=== PATIENT | female | born 1955 | race Caucasian/White ===

== ENCOUNTER → 2017-10-21 | Outpatient (CLI) | payer OTHER, BC | LOC: HYPER 06:43 | DX: L97.811 Non-pressure chronic ulcer of other part of right lower leg limited to breakdown of skin (principal); L97.821 Non-pressure chronic ulcer of other part of left lower leg limited to breakdown of skin; I10 Essential (primary) hypertension; G60.9 Hereditary and idiopathic neuropathy, unspecified; R21 Rash and other nonspecific skin eruption; M19.90 Unspecified osteoarthritis, unspecified site; F41.9 Anxiety disorder, unspecified; I89.0 Lymphedema, not elsewhere classified; E78.5 Hyperlipidemia, unspecified; F32.9 Major depressive disorder, single episode, unspecified; F17.210 Nicotine dependence, cigarettes, uncomplicated ==

== ENCOUNTER → 2017-11-11 | Outpatient (CLI) | payer OTHER, BC | LOC: HYPER 06:44 | DX: L97.821 Non-pressure chronic ulcer of other part of left lower leg limited to breakdown of skin (principal); L97.811 Non-pressure chronic ulcer of other part of right lower leg limited to breakdown of skin; I10 Essential (primary) hypertension; I89.0 Lymphedema, not elsewhere classified; E78.5 Hyperlipidemia, unspecified; G60.9 Hereditary and idiopathic neuropathy, unspecified; G62.9 Polyneuropathy, unspecified; F32.9 Major depressive disorder, single episode, unspecified; F41.9 Anxiety disorder, unspecified; F17.210 Nicotine dependence, cigarettes, uncomplicated ==

== ENCOUNTER → 2017-11-25 | Outpatient (CLI) | payer OTHER, BC | LOC: HYPER 07:01 | DX: L97.811 Non-pressure chronic ulcer of other part of right lower leg limited to breakdown of skin (principal); L97.821 Non-pressure chronic ulcer of other part of left lower leg limited to breakdown of skin; I10 Essential (primary) hypertension; I89.0 Lymphedema, not elsewhere classified; E78.5 Hyperlipidemia, unspecified; M19.90 Unspecified osteoarthritis, unspecified site; G60.9 Hereditary and idiopathic neuropathy, unspecified; F41.9 Anxiety disorder, unspecified; F32.9 Major depressive disorder, single episode, unspecified; F17.210 Nicotine dependence, cigarettes, uncomplicated; Z86.711 Personal history of pulmonary embolism ==

== ENCOUNTER → 2021-01-15 | Outpatient (CLI) | payer OTHER, BC | LOC: HYPER 08:56 | PROVIDERS: ATTEND Emergency Medicine | DX: L97.822 Non-pressure chronic ulcer of other part of left lower leg with fat layer exposed (principal); L97.812 Non-pressure chronic ulcer of other part of right lower leg with fat layer exposed; I87.2 Venous insufficiency (chronic) (peripheral); R21 Rash and other nonspecific skin eruption; L29.8 Other pruritus; R60.0 Localized edema; I89.0 Lymphedema, not elsewhere classified; I10 Essential (primary) hypertension; K31.84 Gastroparesis; M19.90 Unspecified osteoarthritis, unspecified site; G62.9 Polyneuropathy, unspecified; E78.5 Hyperlipidemia, unspecified; G90.9 Disorder of the autonomic nervous system, unspecified; F41.9 Anxiety disorder, unspecified; F32.9 Major depressive disorder, single episode, unspecified; F17.200 Nicotine dependence, unspecified, uncomplicated; Z86.711 Personal history of pulmonary embolism; Z98.890 Other specified postprocedural states; Z79.899 Other long term (current) drug therapy; Z90.49 Acquired absence of other specified parts of digestive tract ==

== ENCOUNTER → 2021-01-30 | Outpatient (CLI) | payer OTHER, BC | LOC: HYPER 08:34 | PROVIDERS: ATTEND Emergency Medicine | DX: L97.822 Non-pressure chronic ulcer of other part of left lower leg with fat layer exposed (principal); L97.812 Non-pressure chronic ulcer of other part of right lower leg with fat layer exposed; L84 Corns and callosities; L29.8 Other pruritus; I87.2 Venous insufficiency (chronic) (peripheral); R21 Rash and other nonspecific skin eruption; R60.0 Localized edema; I89.0 Lymphedema, not elsewhere classified; I10 Essential (primary) hypertension; G62.9 Polyneuropathy, unspecified; G90.9 Disorder of the autonomic nervous system, unspecified; E78.5 Hyperlipidemia, unspecified; K31.84 Gastroparesis; K70.30 Alcoholic cirrhosis of liver without ascites; M19.90 Unspecified osteoarthritis, unspecified site; F41.9 Anxiety disorder, unspecified; F32.9 Major depressive disorder, single episode, unspecified; F17.200 Nicotine dependence, unspecified, uncomplicated; Z86.711 Personal history of pulmonary embolism; Z90.49 Acquired absence of other specified parts of digestive tract ==

== ENCOUNTER → 2021-02-08 | Outpatient (CLI) | payer OTHER, BC ==
[~2021-02-08] MED LIST: ELIQUIS5 MG PO; FUROSEMIDE 20 M20 MG PO; GABAPENTIN600 M1 PO; HYDROXYZINE HCL50 MG PO; LEVETIRACETAM500 M1 PO; MIDODRINE HCL10 MG PO; REGLAN 10 MG TA10 MG PO; SUPER THERAVIT1 EACH PO; TRAMADOL 50 MG50 MG PO; ZOFRAN4 MG PO
== END ==
LOC: SJCVCIMAG 08:12 → SJCVC 11:06 → SJCVCIMAG 11:06
PROVIDERS: ATTEND Emergency Medicine
DX: I70.202 Unspecified atherosclerosis of native arteries of extremities, left leg (principal); L97.909 Non-pressure chronic ulcer of unspecified part of unspecified lower leg with unspecified severity; K70.30 Alcoholic cirrhosis of liver without ascites; I82.5Z9 Chronic embolism and thrombosis of unspecified deep veins of unspecified distal lower extremity; G90.9 Disorder of the autonomic nervous system, unspecified; Z88.8 Allergy status to other drugs, medicaments and biological substances; Z79.899 Other long term (current) drug therapy

== ENCOUNTER → 2021-02-12 | Outpatient (CLI) | payer OTHER, BC ==
[~2021-02-12] VITALS: Ht 157.5 cm; Wt 59.0 kg
[2021-02-12 07:13] VITALS: BP 126/80
== END | disposition home or self-care (01) ==
LOC: CATH 06:40
PROVIDERS: ATTEND Nuclear Medicine Nuclear Cardiology
DX: I70.248 Atherosclerosis of native arteries of left leg with ulceration of other part of lower leg (principal); L97.929 Non-pressure chronic ulcer of unspecified part of left lower leg with unspecified severity; I70.1 Atherosclerosis of renal artery; I10 Essential (primary) hypertension; I25.10 Atherosclerotic heart disease of native coronary artery without angina pectoris; E78.5 Hyperlipidemia, unspecified; M19.90 Unspecified osteoarthritis, unspecified site; F17.210 Nicotine dependence, cigarettes, uncomplicated; Z98.890 Other specified postprocedural states; Z79.899 Other long term (current) drug therapy; Z86.718 Personal history of other venous thrombosis and embolism; Z79.01 Long term (current) use of anticoagulants

== ENCOUNTER → 2021-02-20 | Outpatient (CLI) | payer OTHER, BC | LOC: HYPER 08:12 | PROVIDERS: ATTEND Emergency Medicine | DX: L97.822 Non-pressure chronic ulcer of other part of left lower leg with fat layer exposed (principal); L97.812 Non-pressure chronic ulcer of other part of right lower leg with fat layer exposed; I87.2 Venous insufficiency (chronic) (peripheral); R60.0 Localized edema; R21 Rash and other nonspecific skin eruption; L29.8 Other pruritus; I10 Essential (primary) hypertension; K31.84 Gastroparesis; M19.90 Unspecified osteoarthritis, unspecified site; G62.9 Polyneuropathy, unspecified; E78.5 Hyperlipidemia, unspecified; D89.89 Other specified disorders involving the immune mechanism, not elsewhere classified; F41.9 Anxiety disorder, unspecified; F32.9 Major depressive disorder, single episode, unspecified; F17.290 Nicotine dependence, other tobacco product, uncomplicated; Z86.711 Personal history of pulmonary embolism; Z79.899 Other long term (current) drug therapy ==

== ENCOUNTER → 2021-03-06 | Outpatient (CLI) | payer OTHER, BC | LOC: SJCVCIMAG 07:09 | PROVIDERS: ATTEND Internal Medicine Cardiovascular Disease | DX: R00.0 Tachycardia, unspecified (principal); I49.3 Ventricular premature depolarization; R06.00 Dyspnea, unspecified; R11.0 Nausea; R07.89 Other chest pain; I07.1 Rheumatic tricuspid insufficiency; I77.89 Other specified disorders of arteries and arterioles; E78.00 Pure hypercholesterolemia, unspecified; I82.409 Acute embolism and thrombosis of unspecified deep veins of unspecified lower extremity; I73.9 Peripheral vascular disease, unspecified; E78.5 Hyperlipidemia, unspecified; F17.200 Nicotine dependence, unspecified, uncomplicated; Z88.8 Allergy status to other drugs, medicaments and biological substances; Z79.899 Other long term (current) drug therapy; Z86.73 Personal history of transient ischemic attack (TIA), and cerebral infarction without residual deficits ==

== ENCOUNTER → 2021-03-13 | Outpatient (CLI) | payer OTHER, BC | LOC: HYPER 08:19 | PROVIDERS: ATTEND Emergency Medicine | DX: L97.822 Non-pressure chronic ulcer of other part of left lower leg with fat layer exposed (principal); L97.812 Non-pressure chronic ulcer of other part of right lower leg with fat layer exposed; L84 Corns and callosities; L29.8 Other pruritus; I87.2 Venous insufficiency (chronic) (peripheral); R60.0 Localized edema; R21 Rash and other nonspecific skin eruption; I10 Essential (primary) hypertension; G62.9 Polyneuropathy, unspecified; E78.5 Hyperlipidemia, unspecified; D89.89 Other specified disorders involving the immune mechanism, not elsewhere classified; I89.0 Lymphedema, not elsewhere classified; M19.90 Unspecified osteoarthritis, unspecified site; K31.84 Gastroparesis; F41.9 Anxiety disorder, unspecified; F32.9 Major depressive disorder, single episode, unspecified; Z86.711 Personal history of pulmonary embolism ==

== ENCOUNTER → 2021-04-04 | Outpatient (CLI) | payer OTHER, BC | LOC: HYPER 08:12 | PROVIDERS: ATTEND Emergency Medicine | DX: L97.811 Non-pressure chronic ulcer of other part of right lower leg limited to breakdown of skin (principal); I87.2 Venous insufficiency (chronic) (peripheral); L29.8 Other pruritus; I89.0 Lymphedema, not elsewhere classified; R60.0 Localized edema; R21 Rash and other nonspecific skin eruption; I10 Essential (primary) hypertension; K31.84 Gastroparesis; M19.90 Unspecified osteoarthritis, unspecified site; G62.9 Polyneuropathy, unspecified; E78.5 Hyperlipidemia, unspecified; G90.9 Disorder of the autonomic nervous system, unspecified; F41.9 Anxiety disorder, unspecified; F32.9 Major depressive disorder, single episode, unspecified; F17.290 Nicotine dependence, other tobacco product, uncomplicated; Z86.711 Personal history of pulmonary embolism; Z79.899 Other long term (current) drug therapy ==

== ENCOUNTER → 2021-05-16 | Outpatient (CLI) | payer OTHER, BC | LOC: SJCVCIMAG 13:15 | PROVIDERS: ATTEND Nuclear Medicine Nuclear Cardiology | DX: I65.23 Occlusion and stenosis of bilateral carotid arteries (principal); I70.202 Unspecified atherosclerosis of native arteries of extremities, left leg; L97.909 Non-pressure chronic ulcer of unspecified part of unspecified lower leg with unspecified severity; I82.5Z9 Chronic embolism and thrombosis of unspecified deep veins of unspecified distal lower extremity; I77.9 Disorder of arteries and arterioles, unspecified; G90.9 Disorder of the autonomic nervous system, unspecified; E78.5 Hyperlipidemia, unspecified; N18.9 Chronic kidney disease, unspecified; F17.210 Nicotine dependence, cigarettes, uncomplicated; Z88.1 Allergy status to other antibiotic agents; Z88.8 Allergy status to other drugs, medicaments and biological substances; Z79.899 Other long term (current) drug therapy ==

== ENCOUNTER → 2021-06-12 | Outpatient (CLI) | payer OTHER | LOC: CAT 09:04 | PROVIDERS: ATTEND Internal Medicine Cardiovascular Disease | DX: Z13.6 Encounter for screening for cardiovascular disorders (principal); I25.10 Atherosclerotic heart disease of native coronary artery without angina pectoris; E78.00 Pure hypercholesterolemia, unspecified ==